=== PATIENT | male | born 1950 | race African-American/Black ===

== ENCOUNTER 2022-07-16 15:22 | Emergency (ER) | payer MEDICARE, OTHER ==
[~2022-07-16] VITALS: Ht 167.6 cm; Wt 68.9 kg
[2022-07-16 16:32] LABS: BASOPHILS % (AUTO) 0.2 % (0.0-2.0); EOSINOPHILS % (AUTO) 0.4 % (0.0-6.0); HEMATOCRIT 38 % (39-51); HEMOGLOBIN 12.7 g/dL (13.5-17.5); LYMPHOCYTES # (AUTO) 1.9 K/uL (0.8-4.8); MEAN CORPUSCULAR HGB CONC 33 g/dl (31.0-36.0); MEAN CORPUSCULAR VOLUME 100 fL (80-96); MONOCYTES # (AUTO) 0.5 K/uL (0.1-1.30); NEUTROPHILS # (AUTO) 9.4 K/uL (1.8-8.9); NEUTROPHILS % (AUTO) 79.4 % (43.0-81.0); PLATELET COUNT (AUTO) 239 K/uL (150-450); RED BLOOD CELL COUNT(AUTO) 3.81 MIL/uL (4.5-6.0); WHITE BLOOD COUNT (AUTO) 11.9 K/uL (4.3-11.0)
[2022-07-16 17:04] LABS: ALBUMIN 3.8 g/dL (3.4-5.0); BILIRUBIN,DIRECT 0.1 mg/dL (0.0-0.2); BILIRUBIN,TOTAL 0.3 mg/dL (0.2-1.0); CALCIUM, SERUM 8.6 mg/dL (8.5-10.1); CREATININE 1.2 mg/dL (0.6-1.3); POTASSIUM 3.4 mmol/L (3.5-5.1); TOTAL PROTEIN, SERUM 7.2 g/dL (6.4-8.2)
--- NOTE | 2022-07-16 17:52 | NUR ---
Accu check 62 Patient offered food and OJ refused the juice but topok and ate food. Patient states " I have a device and it registers on my phone it says 82. I will take the food bur not OJ- I cant have that"
[2022-07-16] MEDS ORDERED: DEXTROSE 50%-WATER 50 ML DISP.SYRIN ONE (17:57)
[2022-07-16] MEDS: DEXTROSE 50%-WATER 50 ML DISP.SYRIN IVP ONE (18:03)
--- NOTE | 2022-07-16 21:00 | NUR ---
PT AMBULATED TO REST ROOM ON STEADY GAIT.
--- NOTE | 2022-07-16 21:10 | NUR ---
POC BS 170
--- NOTE | 2022-07-16 21:21 | NUR ---
Patient discharged to home in stable condition. Written and verbal after care instructions given. Patient verbalizes understanding of instruction.IV removed. Catheter intact and site benign. Pressure and 4x4 applied to site. No bleeding noted. Pt ambulatory with a steady gait
[2022-07-16 21:23] VITALS: BP 135/88
== END 2022-07-16 21:24 | disposition home or self-care (01) ==
LOC: ER 15:30
DX: F10.129 Alcohol abuse with intoxication, unspecified (principal); E16.2 Hypoglycemia, unspecified; Y90.8 Blood alcohol level of 240 mg/100 ml or more
CPT/HCPCS: 36415; 80048-TC; 80076-TC; 82962-TC; 85025-TC; G0480

== ENCOUNTER 2022-08-07 17:32 | Emergency (ER) | payer OTHER ==
[~2022-08-07] VITALS: Ht 165.1 cm; Wt 61.2 kg
--- NOTE | 2022-08-07 17:40 | NUR ---
BIBS C/O PALPITATION X 3 DAYS, HR IN THE RANGE OF 120-130 ACCORDING TO HIM. AMBULATORY, PLACED ON BED, DENIES CHEST PAIN, ATTACHED TO MONITOR SHOWS SINUS TACHYCARDIA AR- 105, SATURATING AT 97%RA.
--- NOTE | 2022-08-07 17:55 | NUR ---
BLOODS DRAWN AND SENT TO LAB
[2022-08-07] MEDS ORDERED: IV NS 0.9% 1,000 ML IV ONE (18:00)
[2022-08-07 18:11] LABS: BASOPHILS % (AUTO) 0.4 % (0.0-2.0); EOSINOPHILS % (AUTO) 0.6 % (0.0-6.0); HEMATOCRIT 40 % (39-51); HEMOGLOBIN 13.2 g/dL (13.5-17.5); LYMPHOCYTES # (AUTO) 1.1 K/uL (0.8-4.8); LYMPHOCYTES % (AUTO) 16.7 % (20.0-44.0); MEAN CORPUSCULAR HGB CONC 33 g/dl (31.0-36.0); MEAN CORPUSCULAR VOLUME 99 fL (80-96); MONOCYTES # (AUTO) 0.5 K/uL (0.1-1.30); MONOCYTES % (AUTO) 8.1 % (2.0-12.0); NEUTROPHILS # (AUTO) 4.9 K/uL (1.8-8.9); NEUTROPHILS % (AUTO) 74.2 % (43.0-81.0); PLATELET COUNT (AUTO) 191 K/uL (150-450); RED BLOOD CELL COUNT(AUTO) 4.04 MIL/uL (4.5-6.0); WHITE BLOOD COUNT (AUTO) 6.6 K/uL (4.3-11.0)
[2022-08-07 18:37] LABS: CALCIUM, SERUM 9.7 mg/dL (8.5-10.1); CARBON DIOXIDE 30 mmol/L (21-32); CHLORIDE 101 mmol/L (98-107); GLUCOSE 124 mg/dL (74-106); POTASSIUM 3.9 mmol/L (3.5-5.1); SODIUM SERUM 140 mmol/L (136-145); UREA NITROGEN, BLOOD 21 mg/dL (7-18)
[2022-08-07] MEDS ORDERED: IOHEXOL-300 100 ML VIAL IV ONE (19:18)
[2022-08-07] MEDS ORDERED: IV NS 0.9% 250 ML IV ONE (19:19)
--- NOTE | 2022-08-07 19:31 | NUR ---
PT TAKEN TO CT VIA [facility]
--- NOTE | 2022-08-07 19:31 | NUR ---
PT TAKEN TO CT
--- NOTE | 2022-08-07 19:46 | NUR ---
PT RETURNED TO ER BED [address]
[2022-08-07 21:12] VITALS: BP 177/96
--- NOTE | 2022-08-07 21:12 | NUR ---
Patient discharged to home in stable condition. Written and verbal after care instructions given. Patient verbalizes understanding of instruction. Pt is ambulatory with a steady gait
== END 2022-08-07 21:13 | disposition home or self-care (01) ==
LOC: ER 17:38
DX: R00.2 Palpitations (principal); R91.1 Solitary pulmonary nodule; M84.411D Pathological fracture, right shoulder, subsequent encounter for fracture with routine healing; S22.41XD Multiple fractures of ribs, right side, subsequent encounter for fracture with routine healing; X58.XXXD Exposure to other specified factors, subsequent encounter; Z20.822 Contact with and (suspected) exposure to COVID-19; R03.0 Elevated blood-pressure reading, without diagnosis of hypertension
CPT/HCPCS: 99285; 96360; 71260; 71045; 87426; 93005; 87804; 85025; 80048; 36415; 84484 ×2; J7050; Q9967; C9803